=== PATIENT | female | born 1985 | race African-American/Black ===

== ENCOUNTER 2016-10-23 12:35 | Emergency (ER) | payer OTHER ==
--- NOTE | 2016-10-23 13:43 | PD ---
HPI Chief Complaint Patient complains of spotting and states she's been chayo for to 3 weeks not too painful, baby is active Date Seen: Oct 23, 2016 Travel History International Travel<30 Days: No Contact w/Intl Traveler<30Days: No Known Affected Area: No History of Present Illness HPI This patient is 31-year-old black female at 37-1/[address] Quinn due to her being incarcerated and brought in by the residential staff today she states the baby is moving denies eri blood per vagina and no leakage of fluid he does note mild contractions that she rated 2 on a scale of 10, on the monitor the baby's heart rate tracing is reactive and she is having some contractions at this time Para: 2 : 3 History Obstetric History Obstetric History 2 vaginal deliveries would like delivered deliver this baby vaginally Social History Alcohol Use: No Tobacco Use: No Substance Abuse: No Allergies-Medications (Allergen,Severity, Reaction): Coded Allergies: No Known Allergies (Verified , 06/01/16) Home Meds No Active Prescriptions or Reported Meds Review of Systems General / Constitutional: No: Fever, Weight Gain, Chills, Other Eyes: No: Diploplia, Blurred Vision, Visual changes, Pain, Photophobia HENT: No: Headaches, Vertigo, Lightheadedness Cardiovascular: No: Irregular Rhythm, Chest Pain or Discomfort, Palpitations, Tachycardia, Syncope, Varicosities, Edema, Cyanosis Respiratory: No: Cough, Short of Breath, Other Gastrointestinal: No: Nausea, Vomiting, Diarrhea Genitourinary: No: Decreased Urinary Output, Oliguria Musculoskeletal: No: Limited ROM, Weakness, Cramping, Edema, Pain Skin: No Rash, No Itching, No Dryness, No Lumps, No Change in Pigmentation, No Change in Nails, No Alopecia, No Lesions Neurologic: No: Weakness, Dizziness, Syncope, Focal Abnormalities, Coordination Problem, Headache, Slurred Speech, Seizures Psychiatric: No: Depression, Suicidal Ideations, Homicidal Ideation Endocrine: No: Heat Intolerance, Cold Intolerance, Polydipsia, Polyuria, Other Physical Exam Narrative GENERAL: Well-nourished, well-developed patient. SKIN: Warm and dry. HEAD: Normocephalic and atraumatic. EYES: No scleral icterus. No injection or drainage. ENT: No nasal drainage noted. Mucous membranes pink. Airway patent. NECK: Supple, trachea midline. No JVD. CARDIOVASCULAR: Regular rate and rhythm without murmurs, gallops, or rubs. RESPIRATORY: Breath sounds equal bilaterally. No accessory muscle use. BREASTS: Bilateral exam showed no masses , no retractions, no nipple discharge. ABDOMEN/GI: Abdomen soft, non-tender, bowel sounds present, no rebound, no guarding Gravid to [38-] weeks size Fundal Height: [38 cm-] GENITOURINARY: External Genitalia: intact and normal in appearance BUS glands: [-] Cervix: [-] Dilatation: [-1] Effacement: [-0] Station: [-3] Presentation: [-vtx] Membranes: [intact ] Uterine Contractions: [-2-3 minutes] FHT's: Category: [-144] Baseline: [-133] Reactive: [yes-] Variability: [mod-] Decels: [-none] EXTREMITIES: No cyanosis or edema. BACK: Nontender without obvious deformity. No CVA tenderness. NEUROLOGICAL: Awake and alert. Motor and sensory grossly within normal limits. Five out of 5 muscle strength in all muscle groups. Normal speech. Data Data Orders Vital Signs (Adult) .ON ADMISSION (10/23/16 13:22) ^ Labor Status (10/23/16 13:22) Urinalysis - C+S If Indicated (10/23/16 13:22) MDM Interpretation(s) Patient is a 31-year-old black female 37 weeks [address] Quinn , she is currently incarcerated and brought in by the residential staff, she notes baby is moving no eri blood or leakage of fluid heart rate tracing is reactive and she is chayo every 2-3 minutes. Plan Plan the patient be discharged back to the residential she is not in active labor she is 1 cm and thick he has contractions but they're not very painful at this time , there is really nothing else was today at this point no blood was seen no blood on the vaginal exam, urinalysis mod leuk esterace,and bacteria - macrobid 100 mg bid for 7 d , heart rate tracing is reactive Diagnosis Diagnosis: Primary Impression: Spotting affecting in third trimester Additional Impressions: False labor at or after 37 completed weeks of gestation, antepartum UTI (urinary tract infection) during Disposition: 01 DISCHARGE HOME Condition: Stable Scripts No Active Prescriptions or Reported Meds Jonathan Young II, MD Oct 23, 2016 13:43
[2016-10-23 13:58] LABS: BACTERIA, URINE MOD /hpf; BLOOD, URINE NEG (NEG); COMMENT (UR) CULTURE INDICATED; CULTURE IF INDICATED CULTURE INDICATED; GLUCOSE,URINE NEG (NEG); KETONE, URINE NEG (NEG); MUCUS URINE FEW /lpf (OCC); NITRITE,URINE NEG (NEG); RENAL EPITHELIAL CELLS 1 /hpf; SQUAMOUS EPITHELIAL CELL URINE 28 /hpf (0-5); TRANSITIONAL EPI CELLS, URINE <1 /hpf; URINE COLOR YELLOW (YELLW/STRAW)
[2016-10-23] MEDS ORDERED: MACR100C2 PO (14:05)
== END 2016-10-23 17:17 | disposition home or self-care (01) ==
LOC: HOBED 12:35
DX: O26.853 Spotting complicating pregnancy, third trimester (principal); O47.1 False labor at or after 37 completed weeks of gestation; Z3A.37 37 weeks gestation of pregnancy; R82.71 Bacteriuria
CPT/HCPCS: 81001; 87086; 99284

== ENCOUNTER 2016-10-28 07:02 | Inpatient (IN) | payer OTHER ==
[2016-10-28] VITALS (90 sets, daily range): BP systolic 92–137; BP diastolic 40–77; PULSE 84–123; RESP 16–20; TEMP 97.6–98.6; O2SAT 96–100
[~2016-10-28] VITALS: Ht 170.2 cm; Wt 118.8 kg
[~2016-10-28 07:02] MED LIST: MACR100C2 PO
[2016-10-28] MEDS ORDERED: LACTATED RINGER'S 1000 ML INJ 1,000 ML IV PRN (07:25)
[2016-10-28] MEDS ORDERED: LIDOCAINE HCL 1% 50 ML VIAL INFIL PRN (07:30)
[2016-10-28] MEDS ORDERED: OXYTOCIN 30 UNITS-500ML PREMIX 500 ML IV ONE (07:30)
[2016-10-28] MEDS ORDERED: CITRIC ACID-SODIUM CITRATE LIQ 30 ML UDC PO SCH (07:30)
[2016-10-28] MEDS ORDERED: OXYTOCIN 30 UNITS-500ML PREMIX 500 ML IV SCH (07:30)
[2016-10-28] MEDS ORDERED: LIDOCAINE HCL 1% 50 ML VIAL I-DERMAL PRN (07:30)
[2016-10-28] MEDS ORDERED: MINERAL OIL 10 ML VIAL TOPICAL PRN (07:30)
[2016-10-28] MEDS ORDERED: SODIUM CHLORID 0.9% 500 ML INJ 500 ML OTHER PRN (07:30)
[2016-10-28] MEDS ORDERED: SODIUM CHLOR 0.9% 1000 ML INJ 1,000 ML OTHER PRN (07:45)
--- NOTE | 2016-10-28 08:30 | PD.LABORPN ---
Subjective Subjective uncomfortable with moderate regular UCs GFM Objective Vital Signs Vital Signs Date Time Temp Pulse Resp B/P Pulse Ox O2 Delivery O2 Flow Rate FiO2 10/28/16 07:28 97.6 18 10/28/16 07:15 108 107/77 Objective /-1] strip category one EFW 9+ proven to 9 6 pelvis clinically adequate Isa Quinn MD Oct 28, 2016 08:29
[2016-10-28 08:38] LABS: BASOPHIL % 0.2 % (0.0-2.0); EOSINOPHIL % 0.4 % (0.0-4.0); HEMATOCRIT 34.2 % (35.0-46.0); LYMPH % 21.9 % (9.0-44.0); LYMPHOCYTE # 1.8 TH/MM3 (1.0-4.8); MEAN CELL VOLUME 73.4 FL (80.0-100.0); MEAN CORPUSCULAR HEMOGLOBIN 24.3 PG (27.0-34.0); MEAN CORPUSCULAR HGB CONC 33.1 % (32.0-36.0); MONO % 5.7 % (0.0-8.0); NEUT % 71.8 % (16.0-70.0); PLATELET COUNT 122 TH/MM3 (150-450); RED BLOOD COUNT 4.66 MIL/MM3 (4.00-5.30); RED CELL DISTRIBUTION WIDTH 20.4 % (11.6-17.2); WHITE BLOOD COUNT 8.3 TH/MM3 (4.0-11.0)
[2016-10-28 08:40] LABS: HEMO FLAGS AUTO DIFF
[2016-10-28 08:52] LABS: BACTERIA, URINE FEW /hpf; BLOOD, URINE NEG (NEG); GLUCOSE,URINE NEG (NEG); KETONE, URINE 10 mg/dL (NEG); MUCUS URINE FEW /lpf (OCC); NITRITE,URINE NEG (NEG); PH, URINE 6.5 (5.0-8.5); SQUAMOUS EPITHELIAL CELL URINE 21 /hpf (0-5); TRANSITIONAL EPI CELLS, URINE 1 /hpf; URINE COLOR YELLOW (YELLW/STRAW)
[2016-10-28 08:57] LABS: COMMENT (UR) CULT NOT INDICATED; CULTURE IF INDICATED CULT NOT INDICATED
[2016-10-28] MEDS: LACTATED RINGER'S 1000 ML INJ 1,000 ML IV SCH ×3 (09:03→17:58)
[2016-10-28 09:19] LABS: PLATELET ESTIMATE SMEAR LOW (NORMAL); PLATELET MORPHOLOGY ENLARGED (NORMAL); SCAN/DIFF AUTO DIFF CONFIRMED
[2016-10-28] MEDS: PENICILLIN G POT 2,500,000 UNITS/NS 100 ML IV SCH ×8 (11:00→23:22)
[2016-10-28] MEDS ORDERED: PENICILLIN G POT 5,000,000 UNITS/NS 100 ML(Mini-Bag Plus) IV ONE ×2 (11:00)
[2016-10-28] MEDS ORDERED: ACETAMINOPHEN 325 MG TAB PO PRN (14:15)
--- NOTE | 2016-10-28 16:30 | PD.LABORPN ---
Subjective Subjective Uc's were difficult to treat and patient only just got her IUPC. She is at 8 munits/min She is in minimal pain. She had a massage Notes GFM Objective Vital Signs Vital Signs Date Time Temp Pulse Resp B/P Pulse Ox O2 Delivery O2 Flow Rate FiO2 10/28/16 15:35 98.4 103 116/63 10/28/16 15:34 18 10/28/16 14:12 95 120/53 10/28/16 14:11 18 10/28/16 14:05 101 10/28/16 14:00 100 10/28/16 13:55 97 10/28/16 13:50 96 10/28/16 13:49 94 107/53 10/28/16 13:45 98 18 10/28/16 13:40 90 10/28/16 13:35 90 10/28/16 13:25 112 10/28/16 13:20 107 10/28/16 13:15 108 10/28/16 13:10 114 10/28/16 13:05 117 10/28/16 13:00 120 10/28/16 12:55 105 10/28/16 12:50 109 10/28/16 11:40 113 18 10/28/16 11:39 109 98/61 10/28/16 11:38 98.2 10/28/16 11:35 109 10/28/16 11:30 105 10/28/16 11:25 95 10/28/16 11:20 101 10/28/16 11:15 116 10/28/16 11:10 102 10/28/16 11:09 18 10/28/16 11:05 123 10/28/16 11:00 104 10/28/16 10:55 99 10/28/16 10:55 113 10/28/16 10:50 99 10/28/16 10:50 101 111/76 10/28/16 10:50 106 10/28/16 10:45 114 10/28/16 10:45 100 10/28/16 10:40 99 10/28/16 10:40 101 10/28/16 10:37 18 10/28/16 10:37 116 116/71 10/28/16 10:35 100 10/28/16 10:35 111 10/28/16 10:30 96 10/28/16 10:30 98 10/28/16 10:25 115 10/28/16 10:25 98 10/28/16 10:20 99 10/28/16 10:20 115 10/28/16 10:15 98 10/28/16 10:15 106 10/28/16 10:10 97 98 10/28/16 10:05 95 98 10/28/16 10:00 99 98 10/28/16 09:57 98.5 18 10/28/16 09:55 116 10/28/16 09:55 100 10/28/16 09:51 94 116/68 10/28/16 09:30 20 10/28/16 09:00 18 10/28/16 08:24 92 137/70 Objective examined and fluid gradually released as she was sat up in a more vertical position with about 500 cc clear fluid released baby now better applied and 3+/75%/-3 strip category one. Assessment/Plan Assessment and Plan anticipate need for epidural must keep upright increase pitocin as per protocol now that IUPC in place Isa Quinn MD Oct 28, 2016 16:15
[2016-10-28] MEDS ORDERED: fentaNYL 2MCG-BUPIV 0.125% INJ 100 ML ONE (16:54)
[2016-10-28] MEDS ORDERED: ePHEDrine/NS 25 MG/5 ML SYR ONE (17:03)
[2016-10-28] MEDS ORDERED: ePHEDrine/NS 50 MG/5 ML SYR IV PRN (19:45)
[2016-10-28] MEDS ORDERED: fentaNYL 2MCG-BUPIV 0.125% INJ 100 ML EPIDURAL SCH (19:45)
[2016-10-28] MEDS ORDERED: DO NOT ADMINISTER ANTICOAGULANTS XX PRN (19:45)
[2016-10-28] MEDS ORDERED: NO SYSTEM NARCOTICS XX PRN (19:45)
--- NOTE | 2016-10-28 19:52 | PD.LABORPN ---
Subjective Subjective comfortable after epidural Objective Vital Signs Vital Signs Date Time Temp Pulse Resp B/P Pulse Ox O2 Delivery O2 Flow Rate FiO2 10/28/16 18:45 99 10/28/16 18:45 85 102/72 10/28/16 18:40 84 10/28/16 18:35 107 10/28/16 18:31 101 112/68 10/28/16 18:30 93 10/28/16 18:25 87 10/28/16 18:20 122 10/28/16 18:00 109 106/60 10/28/16 17:55 99 114/57 10/28/16 17:50 103 10/28/16 17:50 101 104/59 10/28/16 17:46 96 120/40 10/28/16 17:45 100 10/28/16 17:40 88 10/28/16 17:40 98 10/28/16 17:40 113/51 10/28/16 17:35 94 10/28/16 17:35 99 104/63 10/28/16 17:31 95 95/60 10/28/16 17:30 96 10/28/16 17:27 18 10/28/16 17:27 98.3 10/28/16 17:26 92 109/51 10/28/16 17:25 93 10/28/16 17:21 92 109/51 10/28/16 17:20 101 10/28/16 17:16 94 128/53 10/28/16 17:15 95 10/28/16 17:10 94 10/28/16 16:53 99 118/71 10/28/16 16:45 18 10/28/16 16:33 105 118/70 10/28/16 16:32 102 109/48 10/28/16 16:11 100 131/65 10/28/16 15:35 98.4 103 116/63 10/28/16 15:34 18 10/28/16 14:12 95 120/53 10/28/16 14:11 18 10/28/16 14:05 101 10/28/16 14:00 100 10/28/16 13:55 97 10/28/16 13:50 96 10/28/16 13:49 94 107/53 10/28/16 13:45 98 18 10/28/16 13:40 90 10/28/16 13:35 90 10/28/16 13:25 112 10/28/16 13:20 107 10/28/16 13:15 108 10/28/16 13:10 114 10/28/16 13:05 117 10/28/16 13:00 120 10/28/16 12:55 105 10/28/16 12:50 109 Objective 3-4/80/-3 strip reactive baby ballotable EFW > 9 pounds on 20 mu/min pitocin with adequate UCs over last hour Assessment/Plan Assessment and Plan discussed that if no descent from 7:15 until 8:30 will proceed with section failure of descent Isa Quinn MD Oct 28, 2016 19:52
[2016-10-29] VITALS (13 sets, daily range): BP systolic 102–121; BP diastolic 44–90; PULSE 100–131; RESP 18–20; TEMP 97.9–98.5
--- NOTE | 2016-10-29 00:58 | PD.OB.DELI ---
Anesthesia: Epidural Episiotomy: None Vaginal Delivery: Normal Presentation: Occiput anterior Nuchal Cord: None Infant: Male One Minute : 8 Five Minute : 9 Weight: 10 11oz Care: Suctioned, Blow-by O2 delivered Placenta: Spontaneous delivery Laceration: No lacerations (delayed cord clamping) Isa Quinn MD Oct 29, 2016 00:58
[2016-10-29] MEDS ORDERED: ALUMINUM/MAGNESIUM/SIMETH 30 ML CUP PO PRN (01:00)
[2016-10-29] MEDS ORDERED: DOCUSATE SODIUM 50 MG/SENNA 8.6 MG TAB PO PRN (01:00)
[2016-10-29] MEDS ORDERED: WITCH HAZEL 50%/GLYCERIN 12.5% 40 PAD JAR TOPICAL PRN (01:00)
[2016-10-29] MEDS ORDERED: SODIUM CHLORIDE 0.9% FLUSH 5 ML FLUSH IV PRN (01:00)
[2016-10-29] MEDS ORDERED: ONDANSETRON ODT 4 MG TAB PO PRN (01:00)
[2016-10-29] MEDS ORDERED: BENZOCAINE 20% TOPICAL SPRAY 60 ML CAN TOPICAL PRN (01:00)
[2016-10-29] MEDS ORDERED: ZOLPIDEM TARTRATE 5 MG TAB PO PRN (01:00)
[2016-10-29] MEDS: IBUPROFEN 600 MG TAB PO PRN ×4 (03:20→23:04)
[2016-10-29] MEDS: ACETAMINOPHEN 325 MG TAB PO PRN ×3 (06:22→21:07)
[2016-10-29] MEDS ORDERED: SODIUM CHLORIDE 0.9% FLUSH 5 ML FLUSH IV SCH (09:00)
--- NOTE | 2016-10-29 12:54 | RADRPT ---
EXAM DATE/TIME: 10/29/2016 12:07 [facility] COMPARISON: No previous studies available for comparison. INDICATIONS : Right shoulder pain radiating to neck and back. MEDICAL HISTORY : None. SURGICAL HISTORY : None. ENCOUNTER: Subsequent ACUITY: 2 months PAIN SCORE: 4/10 LOCATION: Right shoulder TECHNIQUE: Multiplanar, multisequence MRI examination was performed without contrast. FINDINGS: The rotator cuff is intact. Long head biceps tendon is intact and the glenohumeral joint also appears intact without labral injury. There is abnormal fluid at the acromioclavicular joint and there is capsular thickening. There is no significant a.c. joint separation. Findings probably represent a sprain of the a.c. joint. CONCLUSION: 1. At the right a.c. joint there is abnormal fluid, soft tissue swelling and capsular thickening trish acteristic of either sprain or inflammatory change at the acromioclavicular joint. Shoulder joint is intact. No rotator cuff tear. Gato Saab MD on October 29, 2016 at 12:47 Board Certified Radiologist. This report was verified electronically.
[2016-10-29] MEDS ORDERED: DIPHTH/TETANUS/ACEL PERTUSSIS (BOOSTER) 0.5 ML VIAL/PFS IM ONE (16:00)
[2016-10-29] MEDS ORDERED: MEASLES, MUMPS, RUBELLA VACCINE 0.5 ML VIAL SQ ONE (16:00)
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
[2016-10-30] MEDS: ACETAMINOPHEN 325 MG TAB PO PRN ×2 (03:11→07:56)
[2016-10-30] MEDS: IBUPROFEN 600 MG TAB PO PRN ×2 (05:22→11:09)
--- NOTE | 2016-10-30 10:42 | HHI.OB ---
Subjective Post Day: 1 Remarks still c/o shoulder pain. Objective Other Results MRI, right shoulder,mild inflammatory changes of ac joint,no fracture,no separation Objective Remarks GENERAL: Well-nourished, well-developed patient. CARDIOVASCULAR: Regular rate and rhythm without murmurs, gallops, or rubs. RESPIRATORY: Breath sounds equal bilaterally. No accessory muscle use. ABDOMEN/GI: Abdomen soft, non-tender. Fundus: Firm, non-tender at umbilicus. GENITOURINARY: Light to moderate bleeding. EXTREMITIES: No cyanosis or edema, non-tender, without signs of DVT right shoulder without deformity,ac joint normal. Medications and IVs Current Medications Medications (Trade) Dose Ordered Sig/Joby Route Start Time Stop Time Status Last Admin (NS Flush) 2 ml BID IV 10/29/16 09:00 (NS Flush) 2 ml UNSCH PRN IV 10/29/16 01:00 (Tylenol) 650 mg Q4H PRN PO 10/29/16 01:00 10/30/16 07:56 (Motrin) 600 mg Q6H PRN PO 10/29/16 01:00 10/30/16 05:22 (Americaine 20% Top Spr) 1 spray Q4H PRN TOPICAL 10/29/16 01:00 10/29/16 06:21 (Tucks Pads) 1 applic QID PRN TOPICAL 10/29/16 01:00 10/29/16 06:21 (Edita-Colace) 2 tab Q12H PRN PO 10/29/16 01:00 10/30/16 07:55 (Ambien) 5 mg HS PRN PO 10/29/16 01:00 (Mag-Al Plus Susp Liq) 15 ml Q8H PRN PO 10/29/16 01:00 (Zofran Odt) 4 mg Q6H PRN PO 10/29/16 01:00 Assessment/Plan Assessment and Plan PPD#1, NVSD ,macrosomic . benign findings on MRI of right shoulder incarcerated pt. GM will be taking care of baby Discharge Planning plan discharge for tomorrow Alysha Mason MD Oct 30, 2016 10:42
[2016-10-30] MEDS ORDERED: IBUP-232 PO (13:15)
--- NOTE | 2016-10-30 13:17 | HHI.DCPOC ---
Discharge Care Plan Diagnosis: (1) (spontaneous vaginal delivery) Your Health Problems Are: Vaginal delivery Report Symptoms to Your Doctor -Temperate above 100.5 degrees -Redness, of incision or excessive or foul smelling drainage -Unusual pain or calf pain -Increased vaginal bleeding -Painful or difficulty urinating -Feelings of extreme sadness or anxiety after 2 weeks Goals to Promote Your Health * To prevent worsening of your condition and complications * To maintain your health at the optimal level Directions to Meet Your Goals Take your medications as prescribed Follow your dietary instruction Follow activity as directed Ensure plenty of rest for recovery Drink fluids for hydration Keep your appointments as scheduled Take your immunizations and boosters as scheduled If your symptoms worsen call your PCP, if no PCP go to Urgent Care Center or Emergency Room Smoking is Dangerous to Your Health. Avoid second hand smoke Call the 24-hour crisis hotline for domestic abuse at Alysha Mason MD Oct 30, 2016 13:16
== END 2016-10-30 16:10 | DRG 775 ==
LOC: H2EB 07:02 → EEVIPCON 07:02 → H1EA 10-29 05:57
PROVIDERS: ADMIT Obstetrics & Gynecology; ATTEND Obstetrics & Gynecology
PROC: 10E0XZZ Delivery of Products of Conception, External Approach (ICD-10-PCS; principal; 2016-10-29)
DX: O36.63X0 Maternal care for excessive fetal growth, third trimester, not applicable or unspecified (principal); O99.344 Other mental disorders complicating childbirth; F20.9 Schizophrenia, unspecified; F31.9 Bipolar disorder, unspecified; Z37.0 Single live birth; Z3A.00 Weeks of gestation of pregnancy not specified; M25.511 Pain in right shoulder
CPT/HCPCS: 59025; 73221; 81001; 82947; 85025; 87081; J2540; J2590; J3010; J7120